=== PATIENT | male | born 1980 | race Caucasian/White ===

== ENCOUNTER 2024-01-22 19:13 | Emergency (ER) | payer BC, OTHER ==
[2024-01-22] MEDS: Lidocaine 1% 10 ML MDV INJECT STA (20:33)
[2024-01-22] MEDS: ceFAZolin 1 GM Vial IM STA (21:30)
[2024-01-22] MEDS: Lidocaine 1% PF 2 ML SDV INJECT STA (21:30)
[2024-01-22] MEDS: Diphtheria,Pertussis(Acell),Tetanus Vaccine 0.5 ML Syringe IM ONE (21:31)
== END 2024-01-22 22:01 | disposition home or self-care (01) ==
LOC: MW.ED 19:13
DX: S68.621A Partial traumatic transphalangeal amputation of left index finger, initial encounter (principal); F17.210 Nicotine dependence, cigarettes, uncomplicated; Z75.8 Other problems related to medical facilities and other health care; Z23 Encounter for immunization; W23.0XXA Caught, crushed, jammed, or pinched between moving objects, initial encounter
CPT/HCPCS: 12001; 73140; 90471; 90715; 96372; 99283; J0690; J3490